=== PATIENT | male | born 1950 | race Hispanic/Latino ===

== ENCOUNTER → 2021-10-07 | Outpatient (CLI) | payer MEDICARE ==
[~2021-10-07] MED LIST: LIDOCAINE HCL 4% LTA SOL 4 ML VIAL ONE
== END | disposition home or self-care (01) ==
LOC: WHH 08:11
PROVIDERS: ATTEND Family Medicine
DX: C85.95 Non-Hodgkin lymphoma, unspecified, lymph nodes of inguinal region and lower limb (principal); E11.622 Type 2 diabetes mellitus with other skin ulcer; L98.492 Non-pressure chronic ulcer of skin of other sites with fat layer exposed; S31.104A Unspecified open wound of abdominal wall, left lower quadrant without penetration into peritoneal cavity, initial encounter; I10 Essential (primary) hypertension; H91.90 Unspecified hearing loss, unspecified ear; Z87.891 Personal history of nicotine dependence; X58.XXXA Exposure to other specified factors, initial encounter; Y93.89 Activity, other specified; Y92.89 Other specified places as the place of occurrence of the external cause; Y99.8 Other external cause status
CPT/HCPCS: 11042; 11045; A4450; G0463

== ENCOUNTER → 2021-11-04 | Outpatient (CLI) | payer MEDICARE | END | disposition home or self-care (01) | LOC: WHH 09:01 | PROVIDERS: ATTEND Family Medicine | DX: C85.95 Non-Hodgkin lymphoma, unspecified, lymph nodes of inguinal region and lower limb (principal); S31.104D Unspecified open wound of abdominal wall, left lower quadrant without penetration into peritoneal cavity, subsequent encounter; I10 Essential (primary) hypertension; E11.8 Type 2 diabetes mellitus with unspecified complications; H91.90 Unspecified hearing loss, unspecified ear; Z87.891 Personal history of nicotine dependence; X58.XXXD Exposure to other specified factors, subsequent encounter | CPT/HCPCS: 11042 ==

== ENCOUNTER → 2021-11-18 | Outpatient (CLI) | payer MEDICARE | END | disposition home or self-care (01) | LOC: WHH 09:01 | PROVIDERS: ATTEND Family Medicine | DX: C85.95 Non-Hodgkin lymphoma, unspecified, lymph nodes of inguinal region and lower limb (principal); S31.104D Unspecified open wound of abdominal wall, left lower quadrant without penetration into peritoneal cavity, subsequent encounter; I10 Essential (primary) hypertension; E11.8 Type 2 diabetes mellitus with unspecified complications; H91.90 Unspecified hearing loss, unspecified ear; Z87.891 Personal history of nicotine dependence; X58.XXXD Exposure to other specified factors, subsequent encounter | CPT/HCPCS: G0463 ==